=== PATIENT | male | born 1940 | race Caucasian/White ===

== ENCOUNTER 2022-05-15 13:56 | Emergency (ER) | payer OTHER ==
[~2022-05-15] VITALS: Ht 177.8 cm; Wt 106.1 kg
[2022-05-15 13:58] VITALS: BP_SYST 129
--- NOTE | 2022-05-15 14:01 | NUR ---
Patient triaged and placed on ambulance gurney. VSS and patient appears in no acute distress at this time. Accompanied by EMT's, awaiting available bed, and MD notified of need for MSE.
[2022-05-15] MEDS ORDERED: MORPHINE 4 MG INJ. 4 MG/ML VIAL IVP ONE ×2 (15:15→19:00)
[2022-05-15] MEDS ORDERED: ONDANSETRON HCL 4 MG/2 ML VIAL IVP ONE (15:15)
--- NOTE | 2022-05-15 15:27 | NUR ---
Placed in room 3 . Placed on school bus monitor, blood pressure machine and pulse oximeter. To gown for exam. Side rails up. Report given to GREY VASQUEZ.
[2022-05-15 15:28] LABS: BASOPHILS # (AUTO) 0.1 K/uL (0.0-0.2); BASOPHILS % (AUTO) 0.7 % (0.0-2.0); EOSINOPHILS # (AUTO) 0.1 K/uL (0.0-0.4); EOSINOPHILS % (AUTO) 0.6 % (0.0-4.0); HEMATOCRIT 40.7 % (36-54); LYMPHOCYTES # (AUTO) 1.1 K/uL (1.0-5.5); LYMPHOCYTES % (AUTO) 8.7 % (20.5-51.5); MEAN CORPUSCULAR VOLUME 91 fL (79.0-98.0); MONOCYTES # (AUTO) 0.6 K/uL (0.0-1.0); MONOCYTES % (AUTO) 4.9 % (1.7-9.3); NEUTROPHILS # (AUTO) 10.5 K/uL (1.8-7.7); NEUTROPHILS % (AUTO) 85.1 % (40.0-70.0); PLATELET COUNT (AUTO) 242 K/uL (130-430); RED BLOOD CELL COUNT(AUTO) 4.45 MIL/uL (4.2-6.2); WHITE BLOOD COUNT (AUTO) 12.3 K/uL (4.8-10.8)
[2022-05-15 15:43] LABS: ANION GAP 9 (5-15); CALCIUM 9.7 mg/dL (8.4-11.0); CHLORIDE 99 mmol/L (98-107); CREATININE 0.78 mg/dL (0.55-1.30); GLUCOSE 112 mg/dL (70-99); POTASSIUM 3.5 mmol/L (3.5-5.1); UREA NITROGEN, BLOOD 11 mg/dL (8-21)
[2022-05-15 15:45] LABS: INR 2.9 (0.80-1.20); PROTHROMBIN TIME 27.9 SECS (9.5-12.5)
[2022-05-15 15:49] LABS: ALANINE AMINOTRANSFERASE 33 U/L (12-78); ALBUMIN 3.6 g/dL (3.4-4.8); ASPARTATE AMINOTRANSFERASE 43 U/L (10-37); TOTAL BILIRUBIN 1.5 mg/dL (0.0-1.0)
--- NOTE | 2022-05-15 15:57 | NUR ---
PATIENT BIBA FROM HOME AAOX4 C/O HEAD INJURY AND RIGHT ANKLE PAIN, AWAITING FOR X-RAY AND CT SCAN FOR DISPOSITION.
--- NOTE | 2022-05-15 17:45 | NUR ---
PATIENT BACK IN BED FROM CT , AWAITING FOR RESULT FOR DISPOSITION.
--- NOTE | 2022-05-15 18:44 | NUR ---
SPLINT APPLIED TO PATIENT RIGHT LEG PER EDP, AWAITING FOR FAMILY TO SIEVE MAKER PATIENT.
[2022-05-15] MEDS ORDERED: KETOROLAC TROMETHAMINE 30 MG VIAL IVP ONE (19:00)
[2022-05-15] MEDS ORDERED: IBUP-1970 PO (19:01)
--- NOTE | 2022-05-15 19:06 | NUR ---
ALL RESULT BACK PATIENT D/C BY EDP AWAITING FOR CONSTRUCTION CARPENTER.
--- NOTE | 2022-05-15 19:25 | NUR ---
Received report from SALENA Salazar.
[2022-05-15 19:55] VITALS: BP_SYST 135
--- NOTE | 2022-05-15 19:55 | NUR ---
Patient given written and verbal discharge instructions and verbalizes understanding. ER MD discussed with patient the results and treatment provided. Patient in stable condition. ID arm band removed. IV catheter removed intact and dressing applied, no active bleeding. RX ibuprofen po given. Patient educated on pain management and to follow up with PMD and ortho MD. Pain Scale 2/10, tolerable. Opportunity for questions provided and answered. Medication side effect fact sheet provided.
== END 2022-05-15 19:55 | disposition home or self-care (01) ==
LOC: SED 13:56
DX: S92.012A Displaced fracture of body of left calcaneus, initial encounter for closed fracture (principal); S00.83XA Contusion of other part of head, initial encounter; I10 Essential (primary) hypertension; Z79.01 Long term (current) use of anticoagulants; Z79.899 Other long term (current) drug therapy; W11.XXXA Fall on and from ladder, initial encounter; Y93.89 Activity, other specified; Y92.89 Other specified places as the place of occurrence of the external cause; Y99.8 Other external cause status
CPT/HCPCS: 99285; 96374; 29515; 70450; 96375; 80053; 85025; 85610; 85730; 36415; 72100; 72170; 73610; 76376; 96376; J1885; J2405; J2270

== ENCOUNTER 2022-10-19 16:13 | Inpatient (IN) | payer OTHER ==
[~2022-10-19] VITALS: Ht 175.3 cm; Wt 73.0 kg
[~2022-10-19 16:13] MED LIST: DOCU-144 PO; FAMO20TA8 PO; METO-540 PO; PRAM0.253 PO; ROPI0.255 PO; SIME80TA15 PO; SUCR1TAB31 PO; TAMS0.4C96 PO
[2022-10-19 16:38] VITALS: BP_SYST 73
[2022-10-19] MEDS ORDERED: NALOXONE HCL 2 MG/2 ML SYR (NARCAN) IVP ONE (16:45)
[2022-10-19] MEDS ORDERED: NALOXONE HCL 2 MG/2 ML SYR ONE (17:05)
[2022-10-19 17:38] LABS: BASOPHILS % (AUTO) 0.1 % (0.0-2.0); HEMATOCRIT 30.4 % (36-54); HEMOGLOBIN 9.4 g/dL (14.0-18.0); LYMPHOCYTES # (AUTO) 0.6 K/uL (1.0-5.5); LYMPHOCYTES % (AUTO) 2.5 % (20.5-51.5); MEAN CORPUSCULAR HEMOGLOBIN 25 pg (27-31); MEAN CORPUSCULAR HGB CONC 31 % (32-36); MEAN CORPUSCULAR VOLUME 82 fL (79.0-98.0); MONOCYTES # (AUTO) 1.3 K/uL (0.0-1.0); MONOCYTES % (AUTO) 5.9 % (1.7-9.3); NEUTROPHILS % (AUTO) 91.5 % (40.0-70.0); PLATELET COUNT (AUTO) 480 K/uL (130-430); RED BLOOD CELL COUNT(AUTO) 3.71 MIL/uL (4.2-6.2); RED CELL DISTRIBUTION WIDTH 18.1 % (9.0-15.0); WHITE BLOOD COUNT (AUTO) 22.9 K/uL (4.8-10.8)
[2022-10-19] MEDS ORDERED: NOREPINEPHRINE BITARTRATE 4 MG in NS 246 ML IV ONE (18:00)
[2022-10-19 18:06] LABS: ALANINE AMINOTRANSFERASE 8 U/L (12-78); ALBUMIN 1.4 g/dL (3.4-4.8); ANION GAP 6 (5-15); ASPARTATE AMINOTRANSFERASE 38 U/L (10-37); CALCIUM 7.8 mg/dL (8.4-11.0); CHLORIDE 96 mmol/L (98-107); GLUCOSE 153 mg/dL (70-99); TOTAL BILIRUBIN 0.8 mg/dL (0.0-1.0); UREA NITROGEN, BLOOD 13 mg/dL (8-21)
[2022-10-19 18:08] LABS: ALCOHOL, BLOOD < 3 mg/dL (<10)
[2022-10-19 18:12] LABS: ACETAMINOPHEN 132 ug/mL (1-30)
[2022-10-19] MEDS ORDERED: KCL 40 mEq in D5W 1000 mL 1,000 ML IV ONE (18:15)
[2022-10-19] MEDS ORDERED: VANCOMYCIN HCL 1,000 MG in NS 250 ML IV ONE (18:15)
[2022-10-19] MEDS ORDERED: PIPERACILLIN/TAZO 3.375 GM in NS 50 ML IV ONE (18:15)
[2022-10-19] MEDS ORDERED: PIPERACILLIN/TAZOBACTAM 3.375 GM/VIAL (ZOSYN) IV ONE (18:29)
[2022-10-19 18:32] LABS: INR 4.3 (0.80-1.20); PROTHROMBIN TIME 40.5 SECS (9.5-12.5)
[2022-10-19] MEDS ORDERED: KCL 20 mEq in 100 mL (PREMIX) 0 ML IV ONE (18:47)
[2022-10-19] MEDS ORDERED: VANCOMYCIN HCL 1000 MG/VIAL IV ONE (18:50)
[2022-10-19 20:48] LABS: BILIRUBIN,URINE NEGATIVE (NEGATIVE); BLOOD, URINE 3+ (NEGATIVE); CLARITY/URINE TURBID (CLEAR); COLOR,URINE YELLOW (YELLOW); GLUCOSE,URINE NEGATIVE (NEGATIVE); KETONES,URINE 3+ (NEGATIVE); LEUKOCYTE ESTERASE ,URINE 3+ (NEGATIVE); NITRITE, URINE NEGATIVE (NEGATIVE); PROTEIN URINE 3+ (NEGATIVE); UROBILINOGEN,URINE 0.2 (0.2-1.0)
[2022-10-19 20:49] LABS: BACTERIA,URINE MANY /HPF (None Seen); RBC,URINE 0-3 /HPF (0-3); WBC,URINE >100 /HPF (0-3)
[2022-10-19 20:50] LABS: MUCUS,URINE None Seen /LPF (None Seen)
[2022-10-19 20:55] LABS: BARBITURATE, URINE NEGATIVE (NEG <=200); BENZODIAZEPINE, URINE POSITIVE (NEG <=150); CANNABINOID, URINE NEGATIVE (NEG <=50); COCAINE, URINE NEGATIVE (NEG <=150); METHAMPHETAMINES SCREEN,URINE NEGATIVE (NEG <=500); OPIATE, URINE POSITIVE (NEG <=100); PHENCYCLIDINE SCREEN,URINE NEGATIVE (NEG <=25); UR TRICYCLIC ANTIDEPRESSANTS NEGATIVE (NEG <=300); URINE AMPHETAMINE NEGATIVE (NEG <=500); URINE METHADONE NEGATIVE (NEG <=200); URINE OXYCODONE SCREEN NEGATIVE (NEG <=100); URINE PROPOXYPHENE SCREEN NEGATIVE (NEG <=300)
[2022-10-19] MEDS: PRAMIPEXOLE DI-HCL 1 MG TABLET PO SCH (21:00)
[2022-10-19] MEDS: roPINIRole HCL 0.25 MG ( REQUIP )TABLET PO SCH (21:00)
[2022-10-19 23:45] VITALS: BP_SYST 140
[2022-10-19 23:47] VITALS: BP_SYST 99
[2022-10-20] VITALS (27 sets, daily range): BP systolic 87–129
[2022-10-20] MEDS ORDERED: NOREPINEPHRINE 4 MG/4 ML VIAL IV ONE ×2 (02:44→13:17)
[2022-10-20] MEDS ORDERED: NOREPINEPHRINE BITARTRATE 4 MG in NS 246 ML IV PRN ×2 (03:00→17:30)
[2022-10-20 06:10] LABS: BASOPHILS % (AUTO) 0.2 % (0.0-2.0); HEMATOCRIT 33.3 % (36-54); HEMOGLOBIN 10.4 g/dL (14.0-18.0); LYMPHOCYTES # (AUTO) 0.9 K/uL (1.0-5.5); LYMPHOCYTES % (AUTO) 4.1 % (20.5-51.5); MEAN CORPUSCULAR HEMOGLOBIN 26 pg (27-31); MEAN CORPUSCULAR HGB CONC 31 % (32-36); MEAN CORPUSCULAR VOLUME 83 fL (79.0-98.0); MONOCYTES # (AUTO) 0.6 K/uL (0.0-1.0); MONOCYTES % (AUTO) 2.8 % (1.7-9.3); NEUTROPHILS # (AUTO) 20.2 K/uL (1.8-7.7); NEUTROPHILS % (AUTO) 92.9 % (40.0-70.0); PLATELET COUNT (AUTO) 295 K/uL (130-430); RED CELL DISTRIBUTION WIDTH 17.9 % (9.0-15.0); WHITE BLOOD COUNT (AUTO) 21.7 K/uL (4.8-10.8)
[2022-10-20 06:35] LABS: ANION GAP 3 (5-15); CALCIUM 7.7 mg/dL (8.4-11.0); CHLORIDE 95 mmol/L (98-107); CREATININE 0.85 mg/dL (0.55-1.30); GLUCOSE 234 mg/dL (70-99); UREA NITROGEN, BLOOD 19 mg/dL (8-21)
[2022-10-20 06:39] LABS: ALANINE AMINOTRANSFERASE 81 U/L (12-78); ALBUMIN 1.5 g/dL (3.4-4.8); ASPARTATE AMINOTRANSFERASE 422 U/L (10-37); TOTAL BILIRUBIN 0.9 mg/dL (0.0-1.0)
[2022-10-20] MEDS: SUCRALFATE 1 GM TABLET PO SCH ×2 (07:02→16:36)
[2022-10-20] MEDS ORDERED: KCL 40 mEq in 100 mL (PREMIX) 100 ML IV ONE (08:00)
[2022-10-20] MEDS ORDERED: DEXTROSE 50% JECT 50 ML DISP.SYRIN IVP ONE (08:00)
[2022-10-20] MEDS: TAMSULOSIN HCL 0.4 MG CAP PO SCH ×2 (09:55→20:20)
[2022-10-20] MEDS: FAMOTIDINE 20 MG TABLET PO SCH ×2 (09:55→20:22)
[2022-10-20] MEDS: DOCUSATE SODIUM 100 MG CAPSULE PO SCH ×2 (09:55→20:20)
[2022-10-20] MEDS: SIMETHICONE 80 MG TAB.CHEW PO SCH ×3 (09:55→20:22)
[2022-10-20] MEDS ORDERED: ACETYLCYSTEINE IV ONE ×3 (10:00)
[2022-10-20] MEDS ORDERED: D5W IV ONE ×3 (10:00)
[2022-10-20 12:09] LABS: ALANINE AMINOTRANSFERASE 133 U/L (12-78); ALBUMIN 1.3 g/dL (3.4-4.8); ANION GAP 13 (5-15); ASPARTATE AMINOTRANSFERASE 623 U/L (10-37); CALCIUM 7.6 mg/dL (8.4-11.0); CHLORIDE 93 mmol/L (98-107); CREATININE 0.82 mg/dL (0.55-1.30); GLUCOSE 235 mg/dL (70-99); TOTAL BILIRUBIN 0.9 mg/dL (0.0-1.0); UREA NITROGEN, BLOOD 20 mg/dL (8-21)
[2022-10-20] MEDS: PIPERACILLIN/TAZO 4.5GM/DEX-IS 100 ML IV SCH ×2 (14:37→21:16)
[2022-10-20 18:28] LABS: ALANINE AMINOTRANSFERASE 353 U/L (12-78); ALBUMIN 1.5 g/dL (3.4-4.8); ANION GAP 8 (5-15); ASPARTATE AMINOTRANSFERASE 1715 U/L (10-37); CALCIUM 8.1 mg/dL (8.4-11.0); CHLORIDE 94 mmol/L (98-107); CREATININE 1.03 mg/dL (0.55-1.30); GLUCOSE 195 mg/dL (70-99); TOTAL BILIRUBIN 1.2 mg/dL (0.0-1.0); UREA NITROGEN, BLOOD 23 mg/dL (8-21)
[2022-10-20 18:51] LABS: INR > 9.0 (0.80-1.20)
[2022-10-20] MEDS ORDERED: NACL 0.9% 1,000 ML IV ONE (19:00)
[2022-10-20] MEDS ORDERED: LACTULOSE 20 GM/30 ML UDC PO ONE (19:15)
[2022-10-20] MEDS ORDERED: RIFAXIMIN 550 MG TABLET PO ONE (19:15)
[2022-10-20] MEDS ORDERED: AMIODARONE HCL 150 MG/3ML VIAL ONE (19:29)
[2022-10-20] MEDS ORDERED: AMIODARONE HCL 150 MG in D5W 100 ML IV ONE (19:30)
[2022-10-20] MEDS ORDERED: K PHOS 30 MM in NS 250 ML IV ONE (19:30)
[2022-10-20] MEDS: AMIODARONE HCL 450 MG in D5W 241 ML IV SCH (20:09)
[2022-10-20] MEDS: PRAMIPEXOLE DI-HCL 1 MG TABLET PO SCH (21:00)
[2022-10-20] MEDS: roPINIRole HCL 0.25 MG ( REQUIP )TABLET PO SCH (21:00)
[2022-10-20] MEDS: LACTULOSE 20 GM/30 ML UDC PO SCH (21:15)
[2022-10-20] MEDS: NOREPINEPHRINE BITARTRATE 16 MG in NS 234 ML IV PRN (22:57)
[2022-10-20] MEDS ORDERED: PHYTONADIONE 10 MG in NS 50 ML IV ONE (23:15)
[2022-10-20] MEDS ORDERED: PHYTONADIONE 10 MG/ML AMP ONE (23:47)
[2022-10-21] VITALS (24 sets, daily range): BP systolic 87–138
[2022-10-21 01:35] LABS: INR > 9.0 (0.80-1.20)
[2022-10-21 01:39] LABS: ACETAMINOPHEN 3 ug/mL (1-30); ALANINE AMINOTRANSFERASE 578 U/L (12-78); ALBUMIN 1.4 g/dL (3.4-4.8); ANION GAP 13 (5-15); ASPARTATE AMINOTRANSFERASE 2345 U/L (10-37); CALCIUM 7.4 mg/dL (8.4-11.0); CHLORIDE 94 mmol/L (98-107); CREATININE 1.15 mg/dL (0.55-1.30); GLUCOSE 180 mg/dL (70-99); PHOSPHORUS 2.5 mg/dL (2.7-4.5); TOTAL BILIRUBIN 1.2 mg/dL (0.0-1.0); UREA NITROGEN, BLOOD 23 mg/dL (8-21)
[2022-10-21] MEDS ORDERED: KCL 40 mEq in 100 mL (PREMIX) 100 ML IV ONE ×2 (02:00→06:00)
[2022-10-21] MEDS: AMIODARONE HCL 450 MG in D5W 241 ML IV SCH (04:29)
[2022-10-21] MEDS: SUCRALFATE 1 GM TABLET PO SCH ×2 (06:06→16:29)
[2022-10-21] MEDS: PIPERACILLIN/TAZO 4.5GM/DEX-IS 100 ML IV SCH ×3 (06:06→21:42)
[2022-10-21 06:51] LABS: BASOPHILS # (AUTO) 0.1 K/uL (0.0-0.2); BASOPHILS % (AUTO) 0.2 % (0.0-2.0); EOSINOPHILS % (AUTO) 0.1 % (0.0-4.0); HEMATOCRIT 35.8 % (36-54); HEMOGLOBIN 11.1 g/dL (14.0-18.0); LYMPHOCYTES # (AUTO) 1.6 K/uL (1.0-5.5); LYMPHOCYTES % (AUTO) 5.8 % (20.5-51.5); MEAN CORPUSCULAR HEMOGLOBIN 26 pg (27-31); MEAN CORPUSCULAR HGB CONC 31 % (32-36); MEAN CORPUSCULAR VOLUME 83 fL (79.0-98.0); MONOCYTES % (AUTO) 3.6 % (1.7-9.3); NEUTROPHILS # (AUTO) 25.3 K/uL (1.8-7.7); NEUTROPHILS % (AUTO) 90.3 % (40.0-70.0); PLATELET COUNT (AUTO) 206 K/uL (130-430)
[2022-10-21] MEDS ORDERED: D5W IV ONE (07:00)
[2022-10-21] MEDS ORDERED: ACETYLCYSTEINE IV ONE (07:00)
[2022-10-21 07:13] LABS: ACETAMINOPHEN 2 ug/mL (1-30); ALANINE AMINOTRANSFERASE 662 U/L (12-78); ALBUMIN 1.4 g/dL (3.4-4.8); ANION GAP 11 (5-15); CALCIUM 7.7 mg/dL (8.4-11.0); CHLORIDE 93 mmol/L (98-107); CHOLESTEROL 55 mg/dL (<200); CREATININE 1.11 mg/dL (0.55-1.30); GLUCOSE 162 mg/dL (70-99); HDL CHOLESTEROL 32 mg/dL (>45); PHOSPHORUS 2.5 mg/dL (2.7-4.5); THYROID STIMULATING HORMONE 1.22 uIu/mL (0.34-4.82); TOTAL BILIRUBIN 1.3 mg/dL (0.0-1.0); TRIGLYCERIDES 66 mg/dL (30-150); UREA NITROGEN, BLOOD 24 mg/dL (8-21)
[2022-10-21 08:03] LABS: INR 5.8 (0.80-1.20); PROTHROMBIN TIME 54.2 SECS (9.5-12.5)
[2022-10-21] MEDS: LACTULOSE 20 GM/30 ML UDC PO SCH ×2 (09:23→21:39)
[2022-10-21] MEDS: TAMSULOSIN HCL 0.4 MG CAP PO SCH ×2 (09:23→21:41)
[2022-10-21] MEDS: FAMOTIDINE 20 MG TABLET PO SCH ×2 (09:24→21:41)
[2022-10-21] MEDS: RIFAXIMIN 550 MG TABLET PO SCH ×2 (09:24→21:42)
[2022-10-21] MEDS: SIMETHICONE 80 MG TAB.CHEW PO SCH ×3 (09:24→21:41)
[2022-10-21] MEDS: DOCUSATE SODIUM 100 MG CAPSULE PO SCH ×2 (09:24→21:39)
[2022-10-21] MEDS ORDERED: PHYTONADIONE Non-Formulary 5 MG TABLET PO ONE (10:00)
[2022-10-21 12:00] LABS: ASPARTATE AMINOTRANSFERASE 3090 U/L (10-37)
[2022-10-21] MEDS: NOREPINEPHRINE BITARTRATE 16 MG in NS 234 ML IV PRN (12:05)
[2022-10-21 12:24] LABS: INR 3.5 (0.80-1.20)
[2022-10-21 12:29] LABS: BASOPHILS % (AUTO) 0.1 % (0.0-2.0); EOSINOPHILS % (AUTO) 0.1 % (0.0-4.0); HEMATOCRIT 35.9 % (36-54); HEMOGLOBIN 11.1 g/dL (14.0-18.0); LYMPHOCYTES # (AUTO) 1.7 K/uL (1.0-5.5); LYMPHOCYTES % (AUTO) 6.6 % (20.5-51.5); MEAN CORPUSCULAR HEMOGLOBIN 26 pg (27-31); MEAN CORPUSCULAR HGB CONC 31 % (32-36); MEAN CORPUSCULAR VOLUME 83 fL (79.0-98.0); MONOCYTES # (AUTO) 1.1 K/uL (0.0-1.0); MONOCYTES % (AUTO) 4.4 % (1.7-9.3); NEUTROPHILS # (AUTO) 22.8 K/uL (1.8-7.7); NEUTROPHILS % (AUTO) 88.8 % (40.0-70.0); PLATELET COUNT (AUTO) 199 K/uL (130-430); RED BLOOD CELL COUNT(AUTO) 4.35 MIL/uL (4.2-6.2); RED CELL DISTRIBUTION WIDTH 18.5 % (9.0-15.0); WHITE BLOOD COUNT (AUTO) 25.6 K/uL (4.8-10.8)
[2022-10-21 12:37] LABS: ACETAMINOPHEN 1 ug/mL (1-30); ALANINE AMINOTRANSFERASE 705 U/L (12-78); ALBUMIN 1.4 g/dL (3.4-4.8); ANION GAP 13 (5-15); BILIRUBIN,DIRECT 0.8 mg/dL (0.0-0.3); CHLORIDE 92 mmol/L (98-107); GLUCOSE 158 mg/dL (70-99); PHOSPHORUS 2.2 mg/dL (2.7-4.5); TOTAL BILIRUBIN 1.4 mg/dL (0.0-1.0); UREA NITROGEN, BLOOD 26 mg/dL (8-21)
[2022-10-21] MEDS ORDERED: POTASSIUM CHLORIDE 20 MEQ/PKT PACKET PO ONE (12:45)
[2022-10-21 12:58] LABS: ASPARTATE AMINOTRANSFERASE 2997 U/L (10-37)
[2022-10-21] MEDS ORDERED: PHYTONADIONE (Vitamin K) Oral Solution PO ONE (13:00)
[2022-10-21 13:01] LABS: PROTHROMBIN TIME 33.3 SECS (9.5-12.5)
[2022-10-21] MEDS: VANCOMYCIN HCL 750 MG in NS 250 ML IV SCH (14:54)
[2022-10-21] MEDS: MUPIROCIN 2% TOPICAL OINTMENT 22 GM NS SCH (21:40)
[2022-10-21] MEDS: AMIODARONE HCL 200 MG TABLET PO SCH (21:40)
[2022-10-21] MEDS: roPINIRole HCL 0.25 MG ( REQUIP )TABLET PO SCH (21:41)
[2022-10-21] MEDS: PRAMIPEXOLE DI-HCL 1 MG TABLET PO SCH (21:41)
[2022-10-22] VITALS (24 sets, daily range): BP systolic 81–118
[2022-10-22] MEDS: NOREPINEPHRINE BITARTRATE 16 MG in NS 234 ML IV PRN ×2 (01:35→15:36)
[2022-10-22 02:32] LABS: INR 1.9 (0.80-1.20); PROTHROMBIN TIME 18.7 SECS (9.5-12.5)
[2022-10-22 02:34] LABS: ALANINE AMINOTRANSFERASE 555 U/L (12-78); ASPARTATE AMINOTRANSFERASE 1264 U/L (10-37)
[2022-10-22] MEDS ORDERED: NOREPINEPHRINE 4 MG/4 ML VIAL IV ONE (02:34)
[2022-10-22] MEDS: VANCOMYCIN HCL 750 MG in NS 250 ML IV SCH ×2 (03:14→14:13)
[2022-10-22 06:33] LABS: BASOPHILS % (AUTO) 0.2 % (0.0-2.0); EOSINOPHILS % (AUTO) 0.2 % (0.0-4.0); HEMATOCRIT 32.4 % (36-54); HEMOGLOBIN 10.5 g/dL (14.0-18.0); LYMPHOCYTES # (AUTO) 1.8 K/uL (1.0-5.5); LYMPHOCYTES % (AUTO) 8.6 % (20.5-51.5); MEAN CORPUSCULAR HEMOGLOBIN 26 pg (27-31); MEAN CORPUSCULAR HGB CONC 32 % (32-36); MEAN CORPUSCULAR VOLUME 81 fL (79.0-98.0); MONOCYTES # (AUTO) 1.4 K/uL (0.0-1.0); MONOCYTES % (AUTO) 6.6 % (1.7-9.3); NEUTROPHILS # (AUTO) 17.4 K/uL (1.8-7.7); NEUTROPHILS % (AUTO) 84.4 % (40.0-70.0); PLATELET COUNT (AUTO) 196 K/uL (130-430); RED BLOOD CELL COUNT(AUTO) 3.99 MIL/uL (4.2-6.2); WHITE BLOOD COUNT (AUTO) 20.6 K/uL (4.8-10.8)
[2022-10-22 07:10] LABS: ALANINE AMINOTRANSFERASE 578 U/L (12-78); ALBUMIN 1.4 g/dL (3.4-4.8); ANION GAP 9 (5-15); BILIRUBIN,DIRECT 0.7 mg/dL (0.0-0.3); CALCIUM 7.7 mg/dL (8.4-11.0); CHLORIDE 92 mmol/L (98-107); CREATININE 1.04 mg/dL (0.55-1.30); GLUCOSE 151 mg/dL (70-99); TOTAL BILIRUBIN 1.3 mg/dL (0.0-1.0); UREA NITROGEN, BLOOD 22 mg/dL (8-21)
[2022-10-22] MEDS: PIPERACILLIN/TAZO 4.5GM/DEX-IS 100 ML IV SCH ×3 (07:40→23:54)
[2022-10-22] MEDS: SUCRALFATE 1 GM TABLET PO SCH ×2 (07:41→16:56)
[2022-10-22 08:06] LABS: EBV AB VCA, IgM <36.0 U/mL (0.0-35.9); HEPATITIS B SURFACE AG Negative (Negative); HEPATITIS C VIRUS AB Non Reactive (Non Reactive)
[2022-10-22] MEDS ORDERED: D5NS 1,000 ML IV SCH (08:30)
[2022-10-22] MEDS: DOCUSATE SODIUM 100 MG CAPSULE PO SCH ×2 (09:00→23:49)
[2022-10-22 09:07] LABS: ASPARTATE AMINOTRANSFERASE 1289 U/L (10-37)
[2022-10-22] MEDS: SIMETHICONE 80 MG TAB.CHEW PO SCH ×3 (09:21→23:52)
[2022-10-22] MEDS: TAMSULOSIN HCL 0.4 MG CAP PO SCH ×2 (09:22→23:51)
[2022-10-22] MEDS: FAMOTIDINE 20 MG TABLET PO SCH ×2 (09:23→23:53)
[2022-10-22] MEDS: AMIODARONE HCL 200 MG TABLET PO SCH ×2 (09:23→23:49)
[2022-10-22] MEDS: LACTULOSE 20 GM/30 ML UDC PO SCH ×2 (09:23→23:50)
[2022-10-22] MEDS: RIFAXIMIN 550 MG TABLET PO SCH (09:24)
[2022-10-22] MEDS: MUPIROCIN 2% TOPICAL OINTMENT 22 GM NS SCH ×2 (09:24→23:47)
[2022-10-22] MEDS: KCL 20 mEq in D5NS 1000 mL 1,000 ML IV SCH (12:45)
[2022-10-22] MEDS ORDERED: POTASSIUM CHLORIDE 20 MEQ/PKT PACKET PO ONE (12:45)
[2022-10-22] MEDS ORDERED: D5W IV ONE ×2 (22:45→23:15)
[2022-10-22] MEDS ORDERED: ACETYLCYSTEINE IV ONE ×2 (22:45→23:15)
[2022-10-22] MEDS ORDERED: ACETYLCYSTEINE IV 6000 MG/30 ML VIAL IV ONE (23:19)
[2022-10-22] MEDS: PRAMIPEXOLE DI-HCL 1 MG TABLET PO SCH (23:52)
[2022-10-22] MEDS: roPINIRole HCL 0.25 MG ( REQUIP )TABLET PO SCH (23:53)
[2022-10-23] VITALS (23 sets, daily range): BP systolic 87–115
[2022-10-23] MEDS: KCL 20 mEq in D5NS 1000 mL 1,000 ML IV SCH ×2 (04:01→16:26)
[2022-10-23] MEDS: VANCOMYCIN HCL 750 MG in NS 250 ML IV SCH ×2 (04:02→16:26)
[2022-10-23] MEDS: PIPERACILLIN/TAZO 4.5GM/DEX-IS 100 ML IV SCH ×2 (06:05→13:10)
[2022-10-23] MEDS: SUCRALFATE 1 GM TABLET PO SCH ×2 (06:08→16:27)
[2022-10-23 07:07] LABS: BASOPHILS % (AUTO) 0.2 % (0.0-2.0); EOSINOPHILS # (AUTO) 0.1 K/uL (0.0-0.4); EOSINOPHILS % (AUTO) 0.4 % (0.0-4.0); HEMATOCRIT 31.2 % (36-54); LYMPHOCYTES # (AUTO) 1.4 K/uL (1.0-5.5); LYMPHOCYTES % (AUTO) 9.9 % (20.5-51.5); MEAN CORPUSCULAR HEMOGLOBIN 26 pg (27-31); MEAN CORPUSCULAR HGB CONC 32 % (32-36); MEAN CORPUSCULAR VOLUME 81 fL (79.0-98.0); MONOCYTES # (AUTO) 1.4 K/uL (0.0-1.0); MONOCYTES % (AUTO) 9.5 % (1.7-9.3); NEUTROPHILS # (AUTO) 11.6 K/uL (1.8-7.7); PLATELET COUNT (AUTO) 174 K/uL (130-430); RED BLOOD CELL COUNT(AUTO) 3.84 MIL/uL (4.2-6.2); WHITE BLOOD COUNT (AUTO) 14.5 K/uL (4.8-10.8)
[2022-10-23 07:45] LABS: INR 1.8 (0.80-1.20); PROTHROMBIN TIME 17.3 SECS (9.5-12.5)
[2022-10-23 07:50] LABS: ALANINE AMINOTRANSFERASE 342 U/L (12-78); ALBUMIN 1.3 g/dL (3.4-4.8); ANION GAP 5 (5-15); ASPARTATE AMINOTRANSFERASE 356 U/L (10-37); CALCIUM 7.9 mg/dL (8.4-11.0); CHLORIDE 97 mmol/L (98-107); CREATININE 0.71 mg/dL (0.55-1.30); GLUCOSE 134 mg/dL (70-99); LIPASE 90 U/L (73-393); TOTAL BILIRUBIN 1.1 mg/dL (0.0-1.0); UREA NITROGEN, BLOOD 13 mg/dL (8-21)
[2022-10-23] MEDS: FAMOTIDINE 20 MG TABLET PO SCH ×2 (08:02→20:53)
[2022-10-23] MEDS: LACTULOSE 20 GM/30 ML UDC PO SCH ×2 (08:02→20:50)
[2022-10-23] MEDS: DOCUSATE SODIUM 100 MG CAPSULE PO SCH ×2 (08:02→20:50)
[2022-10-23] MEDS: SIMETHICONE 80 MG TAB.CHEW PO SCH ×3 (08:02→20:53)
[2022-10-23] MEDS: TAMSULOSIN HCL 0.4 MG CAP PO SCH ×2 (08:02→20:52)
[2022-10-23] MEDS: MUPIROCIN 2% TOPICAL OINTMENT 22 GM NS SCH ×2 (08:03→20:49)
[2022-10-23 08:31] LABS: ALBUMIN 1.3 g/dL (3.4-4.8); BILIRUBIN,DIRECT 0.5 mg/dL (0.0-0.3); TOTAL BILIRUBIN 1.1 mg/dL (0.0-1.0)
[2022-10-23 08:44] LABS: INR 1.7 (0.80-1.20); PROTHROMBIN TIME 16.5 SECS (9.5-12.5)
[2022-10-23] MEDS ORDERED: POTASSIUM CHLORIDE 20 MEQ/PKT PACKET PO ONE (10:30)
[2022-10-23] MEDS: roPINIRole HCL 0.25 MG ( REQUIP )TABLET PO SCH (20:54)
[2022-10-23] MEDS: PRAMIPEXOLE DI-HCL 1 MG TABLET PO SCH (21:00)
[2022-10-24] VITALS (25 sets, daily range): BP systolic 101–136
[2022-10-24] MEDS: PIPERACILLIN/TAZO 4.5GM/DEX-IS 100 ML IV SCH ×2 (01:59→06:44)
[2022-10-24] MEDS: VANCOMYCIN HCL 750 MG in NS 250 ML IV SCH (02:00)
[2022-10-24] MEDS: KCL 20 mEq in D5NS 1000 mL 1,000 ML IV SCH ×2 (06:45→20:04)
[2022-10-24] MEDS: SUCRALFATE 1 GM TABLET PO SCH ×2 (06:46→17:00)
[2022-10-24 07:20] LABS: ALANINE AMINOTRANSFERASE 243 U/L (12-78); ALBUMIN 1.4 g/dL (3.4-4.8); ANION GAP 4 (5-15); CALCIUM 8.3 mg/dL (8.4-11.0); CHLORIDE 100 mmol/L (98-107); GLUCOSE 127 mg/dL (70-99); UREA NITROGEN, BLOOD 12 mg/dL (8-21)
[2022-10-24 08:03] LABS: BASOPHILS # (AUTO) 0.1 K/uL (0.0-0.2); BASOPHILS % (AUTO) 0.5 % (0.0-2.0); EOSINOPHILS # (AUTO) 0.2 K/uL (0.0-0.4); EOSINOPHILS % (AUTO) 1.5 % (0.0-4.0); HEMATOCRIT 30.7 % (36-54); HEMOGLOBIN 9.8 g/dL (14.0-18.0); LYMPHOCYTES # (AUTO) 1.5 K/uL (1.0-5.5); LYMPHOCYTES % (AUTO) 10.8 % (20.5-51.5); MEAN CORPUSCULAR HEMOGLOBIN 27 pg (27-31); MEAN CORPUSCULAR HGB CONC 32 % (32-36); MEAN CORPUSCULAR VOLUME 83 fL (79.0-98.0); MONOCYTES # (AUTO) 1.5 K/uL (0.0-1.0); MONOCYTES % (AUTO) 10.9 % (1.7-9.3); NEUTROPHILS # (AUTO) 10.5 K/uL (1.8-7.7); NEUTROPHILS % (AUTO) 76.3 % (40.0-70.0); PLATELET COUNT (AUTO) 207 K/uL (130-430); RED CELL DISTRIBUTION WIDTH 18.2 % (9.0-15.0)
[2022-10-24 08:10] LABS: ASPARTATE AMINOTRANSFERASE 140 U/L (10-37)
[2022-10-24 08:22] LABS: WHITE BLOOD COUNT (AUTO) 13.7 K/uL (4.8-10.8)
[2022-10-24] MEDS: SIMETHICONE 80 MG TAB.CHEW PO SCH ×3 (09:00→21:32)
[2022-10-24] MEDS: LACTULOSE 20 GM/30 ML UDC PO SCH ×2 (09:00→21:30)
[2022-10-24] MEDS: DOCUSATE SODIUM 100 MG CAPSULE PO SCH ×2 (09:48→21:29)
[2022-10-24] MEDS: TAMSULOSIN HCL 0.4 MG CAP PO SCH ×2 (09:49→21:31)
[2022-10-24] MEDS: FAMOTIDINE 20 MG TABLET PO SCH ×2 (09:50→21:32)
[2022-10-24] MEDS: MUPIROCIN 2% TOPICAL OINTMENT 22 GM NS SCH ×2 (09:52→21:29)
[2022-10-24 09:56] LABS: INR 1.6 (0.80-1.20); PROTHROMBIN TIME 16.2 SECS (9.5-12.5)
[2022-10-24] MEDS: NAFCILLIN SODIUM 2 GM in NS 100 ML IV SCH ×3 (13:59→23:37)
[2022-10-24] MEDS: CIPROFLOXACIN LACT 200 MG/D5W 100 ML IV SCH (21:28)
[2022-10-24] MEDS: PRAMIPEXOLE DI-HCL 1 MG TABLET PO SCH (21:31)
[2022-10-24] MEDS: roPINIRole HCL 0.25 MG ( REQUIP )TABLET PO SCH (21:33)
[2022-10-24] MEDS: NOREPINEPHRINE BITARTRATE 16 MG in NS 234 ML IV PRN (22:39)
[2022-10-25] VITALS (23 sets, daily range): BP systolic 100–141
[2022-10-25] MEDS: SUCRALFATE 1 GM TABLET PO SCH ×2 (06:31→17:20)
[2022-10-25 06:46] LABS: INR 1.8 (0.80-1.20); PROTHROMBIN TIME 18.2 SECS (9.5-12.5)
[2022-10-25 06:56] LABS: ALANINE AMINOTRANSFERASE 156 U/L (12-78); ALBUMIN 1.4 g/dL (3.4-4.8); ANION GAP 3 (5-15); CALCIUM 8.3 mg/dL (8.4-11.0); CHLORIDE 104 mmol/L (98-107); CREATININE 0.61 mg/dL (0.55-1.30); GLUCOSE 136 mg/dL (70-99); TOTAL BILIRUBIN 1.5 mg/dL (0.0-1.0); UREA NITROGEN, BLOOD 12 mg/dL (8-21)
[2022-10-25] MEDS: NAFCILLIN SODIUM 2 GM in NS 100 ML IV SCH ×3 (07:03→17:20)
[2022-10-25 07:20] LABS: ASPARTATE AMINOTRANSFERASE 60 U/L (10-37)
[2022-10-25] MEDS: CIPROFLOXACIN LACT 200 MG/D5W 100 ML IV SCH ×2 (08:42→20:20)
[2022-10-25] MEDS: DOCUSATE SODIUM 100 MG CAPSULE PO SCH ×2 (08:43→20:20)
[2022-10-25] MEDS: TAMSULOSIN HCL 0.4 MG CAP PO SCH ×2 (08:43→20:20)
[2022-10-25] MEDS: FAMOTIDINE 20 MG TABLET PO SCH ×2 (08:43→20:20)
[2022-10-25] MEDS: SIMETHICONE 80 MG TAB.CHEW PO SCH ×3 (08:44→20:20)
[2022-10-25] MEDS ORDERED: FUROSEMIDE 20 MG/2 ML VIAL IVP ONE (09:00)
[2022-10-25] MEDS: MUPIROCIN 2% TOPICAL OINTMENT 22 GM NS SCH ×2 (09:00→20:20)
[2022-10-25] MEDS: LACTULOSE 20 GM/30 ML UDC PO SCH (09:00)
[2022-10-25] MEDS ORDERED: FUROSEMIDE 40 MG/4 ML VIAL IVP ONE (09:15)
[2022-10-25] MEDS: MORPHINE 2 MG/ML INJ. SYRINGE IVP PRN (09:39)
[2022-10-25] MEDS: KCL 20 mEq in D5NS 1000 mL 1,000 ML IV SCH ×2 (12:31→23:00)
[2022-10-25] MEDS: roPINIRole HCL 0.25 MG ( REQUIP )TABLET PO SCH (20:20)
[2022-10-25] MEDS: PRAMIPEXOLE DI-HCL 1 MG TABLET PO SCH (20:20)
[2022-10-26] VITALS (7 sets, daily range): BP systolic 117–141
[2022-10-26] MEDS: NAFCILLIN SODIUM 2 GM in NS 100 ML IV SCH ×5 (01:25→23:51)
[2022-10-26 05:42] LABS: BASOPHILS % (AUTO) 0.3 % (0.0-2.0); EOSINOPHILS # (AUTO) 0.1 K/uL (0.0-0.4); EOSINOPHILS % (AUTO) 0.5 % (0.0-4.0); HEMOGLOBIN 9.8 g/dL (14.0-18.0); LYMPHOCYTES # (AUTO) 1.1 K/uL (1.0-5.5); LYMPHOCYTES % (AUTO) 8.7 % (20.5-51.5); MEAN CORPUSCULAR HEMOGLOBIN 26 pg (27-31); MEAN CORPUSCULAR HGB CONC 32 % (32-36); MEAN CORPUSCULAR VOLUME 83 fL (79.0-98.0); MONOCYTES # (AUTO) 1.3 K/uL (0.0-1.0); MONOCYTES % (AUTO) 9.9 % (1.7-9.3); NEUTROPHILS # (AUTO) 10.3 K/uL (1.8-7.7); NEUTROPHILS % (AUTO) 80.6 % (40.0-70.0); PLATELET COUNT (AUTO) 244 K/uL (130-430); RED BLOOD CELL COUNT(AUTO) 3.72 MIL/uL (4.2-6.2); RED CELL DISTRIBUTION WIDTH 18.4 % (9.0-15.0); WHITE BLOOD COUNT (AUTO) 12.8 K/uL (4.8-10.8)
[2022-10-26 06:05] LABS: ANION GAP 8 (5-15); CALCIUM 8.3 mg/dL (8.4-11.0); CHLORIDE 104 mmol/L (98-107); CREATININE 0.76 mg/dL (0.55-1.30); GLUCOSE 161 mg/dL (70-99); UREA NITROGEN, BLOOD 12 mg/dL (8-21)
[2022-10-26] MEDS: SUCRALFATE 1 GM TABLET PO SCH ×2 (06:14→17:47)
[2022-10-26] MEDS: TAMSULOSIN HCL 0.4 MG CAP PO SCH ×2 (08:38→21:22)
[2022-10-26] MEDS: SIMETHICONE 80 MG TAB.CHEW PO SCH ×3 (08:38→21:22)
[2022-10-26] MEDS: DOCUSATE SODIUM 100 MG CAPSULE PO SCH ×2 (08:38→21:22)
[2022-10-26] MEDS: FAMOTIDINE 20 MG TABLET PO SCH ×2 (08:38→21:22)
[2022-10-26] MEDS: LACTULOSE 20 GM/30 ML UDC PO SCH (08:39)
[2022-10-26] MEDS: CIPROFLOXACIN LACT 200 MG/D5W 100 ML IV SCH ×2 (08:41→21:22)
[2022-10-26] MEDS: MUPIROCIN 2% TOPICAL OINTMENT 22 GM NS SCH (08:44)
[2022-10-26] MEDS: KCL 20 mEq in D5NS 1000 mL 1,000 ML IV SCH (13:25)
[2022-10-26] MEDS: PRAMIPEXOLE DI-HCL 1 MG TABLET PO SCH (21:22)
[2022-10-26] MEDS: roPINIRole HCL 0.25 MG ( REQUIP )TABLET PO SCH (21:22)
[2022-10-27] VITALS (13 sets, daily range): BP systolic 104–145
[2022-10-27] MEDS: KCL 20 mEq in D5NS 1000 mL 1,000 ML IV SCH (01:33)
[2022-10-27] MEDS: NAFCILLIN SODIUM 2 GM in NS 100 ML IV SCH ×3 (05:22→17:56)
[2022-10-27 06:31] LABS: ALANINE AMINOTRANSFERASE 96 U/L (12-78); ALBUMIN 1.7 g/dL (3.4-4.8); ANION GAP 6 (5-15); ASPARTATE AMINOTRANSFERASE 31 U/L (10-37); CALCIUM 8.6 mg/dL (8.4-11.0); CHLORIDE 107 mmol/L (98-107); CREATININE 0.68 mg/dL (0.55-1.30); GLUCOSE 153 mg/dL (70-99); TOTAL BILIRUBIN 1.2 mg/dL (0.0-1.0); UREA NITROGEN, BLOOD 15 mg/dL (8-21)
[2022-10-27 07:33] LABS: BASOPHILS % (AUTO) 0.2 % (0.0-2.0); EOSINOPHILS % (AUTO) 0.2 % (0.0-4.0); HEMOGLOBIN 10.1 g/dL (14.0-18.0); LYMPHOCYTES # (AUTO) 1.1 K/uL (1.0-5.5); LYMPHOCYTES % (AUTO) 7.8 % (20.5-51.5); MEAN CORPUSCULAR HEMOGLOBIN 27 pg (27-31); MEAN CORPUSCULAR HGB CONC 32 % (32-36); MEAN CORPUSCULAR VOLUME 84 fL (79.0-98.0); MONOCYTES # (AUTO) 1.3 K/uL (0.0-1.0); MONOCYTES % (AUTO) 9.1 % (1.7-9.3); NEUTROPHILS # (AUTO) 11.7 K/uL (1.8-7.7); NEUTROPHILS % (AUTO) 82.7 % (40.0-70.0); PLATELET COUNT (AUTO) 268 K/uL (130-430); RED BLOOD CELL COUNT(AUTO) 3.82 MIL/uL (4.2-6.2); RED CELL DISTRIBUTION WIDTH 18.7 % (9.0-15.0); WHITE BLOOD COUNT (AUTO) 14.2 K/uL (4.8-10.8)
[2022-10-27] MEDS: SUCRALFATE 1 GM TABLET PO SCH ×2 (07:56→17:56)
[2022-10-27] MEDS: MORPHINE 2 MG/ML INJ. SYRINGE IVP PRN (07:56)
[2022-10-27] MEDS: FAMOTIDINE 20 MG TABLET PO SCH ×2 (08:04→21:52)
[2022-10-27] MEDS: TAMSULOSIN HCL 0.4 MG CAP PO SCH ×2 (08:04→21:59)
[2022-10-27] MEDS: DOCUSATE SODIUM 100 MG CAPSULE PO SCH ×2 (08:04→21:58)
[2022-10-27] MEDS: SIMETHICONE 80 MG TAB.CHEW PO SCH ×3 (08:04→22:01)
[2022-10-27] MEDS: CIPROFLOXACIN LACT 200 MG/D5W 100 ML IV SCH ×2 (08:05→23:24)
[2022-10-27] MEDS: LACTULOSE 20 GM/30 ML UDC PO SCH ×2 (08:05→21:50)
[2022-10-27] MEDS ORDERED: metOLazone 2.5 MG TABLET PO ONE (08:15)
[2022-10-27] MEDS ORDERED: FUROSEMIDE 40 MG/4 ML VIAL IVP SCH (09:00)
[2022-10-27] MEDS: METOPROLOL SUCCINATE 25 MG TAB.SR.24H (TOPROL XL) PO SCH (09:44)
[2022-10-27] MEDS ORDERED: LACTULOSE 20 GM/30 ML UDC PO SCH (15:27)
[2022-10-27] MEDS: roPINIRole HCL 0.25 MG ( REQUIP )TABLET PO SCH (21:00)
[2022-10-27] MEDS: PRAMIPEXOLE DI-HCL 1 MG TABLET PO SCH (21:00)
[2022-10-27] MEDS: FUROSEMIDE 20 MG/2 ML VIAL IVP SCH (23:24)
[2022-10-28] MEDS: NAFCILLIN SODIUM 2 GM in NS 100 ML IV SCH ×4 (00:51→18:08)
[2022-10-28 07:58] VITALS: BP_SYST 152
[2022-10-28] MEDS ORDERED: LACTULOSE 20 GM/30 ML UDC PO SCH (09:00)
[2022-10-28] MEDS: CIPROFLOXACIN LACT 200 MG/D5W 100 ML IV SCH ×2 (09:07→21:39)
[2022-10-28] MEDS: TAMSULOSIN HCL 0.4 MG CAP PO SCH ×2 (09:07→21:38)
[2022-10-28] MEDS: METOPROLOL SUCCINATE 25 MG TAB.SR.24H (TOPROL XL) PO SCH (09:08)
[2022-10-28] MEDS: FAMOTIDINE 20 MG TABLET PO SCH ×2 (09:08→21:38)
[2022-10-28] MEDS: DOCUSATE SODIUM 100 MG CAPSULE PO SCH ×2 (09:08→21:38)
[2022-10-28] MEDS: SIMETHICONE 80 MG TAB.CHEW PO SCH ×3 (09:08→21:38)
[2022-10-28] MEDS: FUROSEMIDE 20 MG/2 ML VIAL IVP SCH ×2 (09:09→21:40)
[2022-10-28 09:25] LABS: INR 1.7 (0.80-1.20); PROTHROMBIN TIME 17.1 SECS (9.5-12.5)
[2022-10-28 11:22] VITALS: BP_SYST 119
[2022-10-28 15:00] VITALS: BP_SYST 131
[2022-10-28] MEDS: SUCRALFATE 1 GM TABLET PO SCH (17:58)
[2022-10-28 20:00] VITALS: BP_SYST 118
[2022-10-28] MEDS: roPINIRole HCL 0.25 MG ( REQUIP )TABLET PO SCH (21:37)
[2022-10-28] MEDS: PRAMIPEXOLE DI-HCL 1 MG TABLET PO SCH (21:38)
[2022-10-29 00:30] VITALS: BP_SYST 99
[2022-10-29] MEDS: NAFCILLIN SODIUM 2 GM in NS 100 ML IV SCH ×4 (00:51→17:38)
[2022-10-29 05:56] LABS: BASOPHILS % (AUTO) 0.1 % (0.0-2.0); EOSINOPHILS % (AUTO) 0.3 % (0.0-4.0); HEMATOCRIT 32.7 % (36-54); HEMOGLOBIN 10.4 g/dL (14.0-18.0); LYMPHOCYTES # (AUTO) 1.4 K/uL (1.0-5.5); LYMPHOCYTES % (AUTO) 11.3 % (20.5-51.5); MEAN CORPUSCULAR HEMOGLOBIN 26 pg (27-31); MEAN CORPUSCULAR HGB CONC 32 % (32-36); MEAN CORPUSCULAR VOLUME 82 fL (79.0-98.0); MONOCYTES % (AUTO) 8.2 % (1.7-9.3); NEUTROPHILS # (AUTO) 9.9 K/uL (1.8-7.7); NEUTROPHILS % (AUTO) 80.1 % (40.0-70.0); PLATELET COUNT (AUTO) 254 K/uL (130-430); RED BLOOD CELL COUNT(AUTO) 3.98 MIL/uL (4.2-6.2); RED CELL DISTRIBUTION WIDTH 20.1 % (9.0-15.0); WHITE BLOOD COUNT (AUTO) 12.3 K/uL (4.8-10.8)
[2022-10-29 06:32] LABS: INR 1.4 (0.80-1.20); PROTHROMBIN TIME 14.1 SECS (9.5-12.5)
[2022-10-29 06:34] LABS: ALANINE AMINOTRANSFERASE 57 U/L (12-78); ALBUMIN 1.5 g/dL (3.4-4.8); ASPARTATE AMINOTRANSFERASE 25 U/L (10-37); CALCIUM 8.4 mg/dL (8.4-11.0); CHLORIDE 98 mmol/L (98-107); GLUCOSE 107 mg/dL (70-99); TOTAL BILIRUBIN 1.5 mg/dL (0.0-1.0)
[2022-10-29] MEDS: SUCRALFATE 1 GM TABLET PO SCH ×2 (06:45→17:28)
[2022-10-29 06:46] LABS: UREA NITROGEN, BLOOD 17 mg/dL (8-21)
[2022-10-29 06:59] LABS: ANION GAP 4 (5-15)
[2022-10-29 08:00] VITALS: BP_SYST 98
[2022-10-29] MEDS: CIPROFLOXACIN LACT 200 MG/D5W 100 ML IV SCH ×2 (08:18→20:13)
[2022-10-29] MEDS: FUROSEMIDE 20 MG/2 ML VIAL IVP SCH ×2 (08:18→20:14)
[2022-10-29] MEDS ORDERED: MIDAZOLAM HCL 2 MG/2 ML VIAL (VERSED) IVP ONE (08:45)
[2022-10-29] MEDS ORDERED: fentaNYL CITRATE/PF 100 MCG/2 ML AMP IVP ONE (08:45)
[2022-10-29] MEDS: METOPROLOL SUCCINATE 25 MG TAB.SR.24H (TOPROL XL) PO SCH (09:00)
[2022-10-29] MEDS: DOCUSATE SODIUM 100 MG CAPSULE PO SCH ×2 (09:47→20:13)
[2022-10-29] MEDS: FAMOTIDINE 20 MG TABLET PO SCH ×2 (09:47→20:13)
[2022-10-29] MEDS: LACTULOSE 20 GM/30 ML UDC PO SCH (09:47)
[2022-10-29] MEDS: SIMETHICONE 80 MG TAB.CHEW PO SCH ×3 (09:47→20:13)
[2022-10-29] MEDS: TAMSULOSIN HCL 0.4 MG CAP PO SCH ×2 (09:47→20:13)
[2022-10-29] MEDS ORDERED: MAGNESIUM SULFATE 50 ML IV ONE (10:15)
[2022-10-29] MEDS ORDERED: POTASSIUM CHLORIDE 40 MEQ in NS 250 ML IV ONE (10:15)
[2022-10-29 11:55] VITALS: BP_SYST 117
[2022-10-29 16:33] VITALS: BP_SYST 108
[2022-10-29] MEDS ORDERED: POTASSIUM CHLORIDE 20 MEQ/PKT PACKET PO ONE (16:45)
[2022-10-29 20:00] VITALS: BP_SYST 107
[2022-10-29] MEDS: roPINIRole HCL 0.25 MG ( REQUIP )TABLET PO SCH (20:13)
[2022-10-29] MEDS: PRAMIPEXOLE DI-HCL 1 MG TABLET PO SCH (20:16)
[2022-10-30] VITALS (14 sets, daily range): BP systolic 92–124
[2022-10-30] MEDS: NAFCILLIN SODIUM 2 GM in NS 100 ML IV SCH ×5 (00:56→23:56)
[2022-10-30 04:29] LABS: BASOPHILS # (AUTO) 0.1 K/uL (0.0-0.2); BASOPHILS % (AUTO) 0.4 % (0.0-2.0); EOSINOPHILS % (AUTO) 0.1 % (0.0-4.0); HEMOGLOBIN 11.1 g/dL (14.0-18.0); LYMPHOCYTES # (AUTO) 1.3 K/uL (1.0-5.5); MEAN CORPUSCULAR HEMOGLOBIN 26 pg (27-31); MEAN CORPUSCULAR HGB CONC 32 % (32-36); MEAN CORPUSCULAR VOLUME 84 fL (79.0-98.0); MONOCYTES # (AUTO) 1.2 K/uL (0.0-1.0); MONOCYTES % (AUTO) 8.9 % (1.7-9.3); NEUTROPHILS # (AUTO) 10.4 K/uL (1.8-7.7); NEUTROPHILS % (AUTO) 80.6 % (40.0-70.0); PLATELET COUNT (AUTO) 304 K/uL (130-430); RED BLOOD CELL COUNT(AUTO) 4.19 MIL/uL (4.2-6.2); RED CELL DISTRIBUTION WIDTH 20.3 % (9.0-15.0)
[2022-10-30 04:46] LABS: ALANINE AMINOTRANSFERASE 47 U/L (12-78); ALBUMIN 1.6 g/dL (3.4-4.8); ASPARTATE AMINOTRANSFERASE 42 U/L (10-37); CALCIUM 8.6 mg/dL (8.4-11.0); CREATININE 0.79 mg/dL (0.55-1.30); GLUCOSE 126 mg/dL (70-99); TOTAL BILIRUBIN 1.5 mg/dL (0.0-1.0); UREA NITROGEN, BLOOD 15 mg/dL (8-21)
[2022-10-30 05:09] LABS: ANION GAP 6 (5-15); CHLORIDE 98 mmol/L (98-107)
[2022-10-30] MEDS ORDERED: POTASSIUM CHLORIDE 20 MEQ TAB.PRT.SR PO ONE (05:45)
[2022-10-30] MEDS ORDERED: KCL 40 mEq in 100 mL (PREMIX) 100 ML IV ONE (05:45)
[2022-10-30] MEDS: SUCRALFATE 1 GM TABLET PO SCH ×2 (06:00→17:00)
[2022-10-30 07:23] LABS: INR 1.3 (0.80-1.20); PROTHROMBIN TIME 12.8 SECS (9.5-12.5)
[2022-10-30] MEDS: CIPROFLOXACIN LACT 200 MG/D5W 100 ML IV SCH ×2 (08:08→20:18)
[2022-10-30] MEDS ORDERED: POTASSIUM CHLORIDE 40 MEQ, LIDOCAINE JECT 2% PF 100 MG 50 MG in NS 250 ML IV ONE (09:00)
[2022-10-30] MEDS ORDERED: FUROSEMIDE 20 MG TABLET PO ONE (09:15)
[2022-10-30] MEDS: DOCUSATE SODIUM 100 MG CAPSULE PO SCH ×3 (10:06→20:41)
[2022-10-30] MEDS: FAMOTIDINE 20 MG TABLET PO SCH ×2 (10:06→20:43)
[2022-10-30] MEDS: SIMETHICONE 80 MG TAB.CHEW PO SCH ×3 (10:07→20:43)
[2022-10-30] MEDS: TAMSULOSIN HCL 0.4 MG CAP PO SCH ×2 (10:07→20:41)
[2022-10-30] MEDS: METOPROLOL SUCCINATE 25 MG TAB.SR.24H (TOPROL XL) PO SCH (10:08)
[2022-10-30] MEDS: POTASSIUM CHLORIDE 20 MEQ/PKT PACKET PO SCH ×2 (10:11→20:41)
[2022-10-30] MEDS: LACTULOSE 20 GM/30 ML UDC PO SCH (10:11)
[2022-10-30] MEDS ORDERED: FUROSEMIDE 40 MG/4 ML VIAL IVP ONE (11:30)
[2022-10-30] MEDS: roPINIRole HCL 0.25 MG ( REQUIP )TABLET PO SCH (20:43)
[2022-10-30] MEDS: PRAMIPEXOLE DI-HCL 1 MG TABLET PO SCH (20:43)
[2022-10-30] MEDS ORDERED: FUROSEMIDE 20 MG TABLET PO SCH (21:00)
[2022-10-31] VITALS (10 sets, daily range): BP systolic 98–135
[2022-10-31] MEDS: D5/0.45 NS 1,000 ML IV SCH ×2 (01:09→21:58)
[2022-10-31] MEDS: NAFCILLIN SODIUM 2 GM in NS 100 ML IV SCH ×3 (05:42→18:32)
[2022-10-31] MEDS: SUCRALFATE 1 GM TABLET PO SCH ×2 (06:07→18:33)
[2022-10-31 09:36] LABS: BASOPHILS # (AUTO) 0.1 K/uL (0.0-0.2); BASOPHILS % (AUTO) 0.4 % (0.0-2.0); EOSINOPHILS % (AUTO) 0.1 % (0.0-4.0); HEMATOCRIT 32.8 % (36-54); HEMOGLOBIN 10.2 g/dL (14.0-18.0); LYMPHOCYTES # (AUTO) 1.3 K/uL (1.0-5.5); LYMPHOCYTES % (AUTO) 11.1 % (20.5-51.5); MEAN CORPUSCULAR HEMOGLOBIN 26 pg (27-31); MEAN CORPUSCULAR HGB CONC 31 % (32-36); MEAN CORPUSCULAR VOLUME 84 fL (79.0-98.0); MONOCYTES % (AUTO) 8.2 % (1.7-9.3); NEUTROPHILS # (AUTO) 9.5 K/uL (1.8-7.7); NEUTROPHILS % (AUTO) 80.2 % (40.0-70.0); PLATELET COUNT (AUTO) 260 K/uL (130-430); RED BLOOD CELL COUNT(AUTO) 3.92 MIL/uL (4.2-6.2); RED CELL DISTRIBUTION WIDTH 20.6 % (9.0-15.0); WHITE BLOOD COUNT (AUTO) 11.9 K/uL (4.8-10.8)
[2022-10-31 09:51] LABS: ANION GAP 1 (5-15); CALCIUM 8.2 mg/dL (8.4-11.0); CHLORIDE 101 mmol/L (98-107); GLUCOSE 117 mg/dL (70-99); UREA NITROGEN, BLOOD 19 mg/dL (8-21)
[2022-10-31 09:52] LABS: INR 1.3 (0.80-1.20)
[2022-10-31 09:55] LABS: ALANINE AMINOTRANSFERASE 36 U/L (12-78); ALBUMIN 1.6 g/dL (3.4-4.8); ASPARTATE AMINOTRANSFERASE 31 U/L (10-37); TOTAL BILIRUBIN 1.3 mg/dL (0.0-1.0)
[2022-10-31] MEDS: SIMETHICONE 80 MG TAB.CHEW PO SCH ×3 (10:27→21:57)
[2022-10-31] MEDS: FAMOTIDINE 20 MG TABLET PO SCH ×2 (10:28→21:56)
[2022-10-31] MEDS: TAMSULOSIN HCL 0.4 MG CAP PO SCH ×2 (10:28→21:56)
[2022-10-31] MEDS ORDERED: FUROSEMIDE 20 MG/2 ML VIAL IVP ONE (10:30)
[2022-10-31] MEDS: METOPROLOL SUCCINATE 25 MG TAB.SR.24H (TOPROL XL) PO SCH (10:30)
[2022-10-31] MEDS: DOCUSATE SODIUM 100 MG CAPSULE PO SCH ×2 (10:31→21:56)
[2022-10-31] MEDS: LACTULOSE 20 GM/30 ML UDC PO SCH (10:33)
[2022-10-31] MEDS: POTASSIUM CHLORIDE 20 MEQ/PKT PACKET PO SCH ×2 (10:40→21:57)
[2022-10-31] MEDS: POTASSIUM CHLORIDE 40 MEQ in 0.45% NS 250 ML IV SCH ×2 (13:54→18:34)
[2022-10-31 17:55] LABS: ANION GAP 2 (5-15); CHLORIDE 100 mmol/L (98-107); GLUCOSE 120 mg/dL (70-99); UREA NITROGEN, BLOOD 21 mg/dL (8-21)
[2022-10-31 18:00] LABS: CALCIUM 8.5 mg/dL (8.4-11.0)
[2022-10-31] MEDS: FUROSEMIDE 20 MG/2 ML VIAL IVP SCH (21:57)
[2022-10-31] MEDS: PRAMIPEXOLE DI-HCL 1 MG TABLET PO SCH (21:58)
[2022-10-31] MEDS: roPINIRole HCL 0.25 MG ( REQUIP )TABLET PO SCH (21:58)
[2022-11-01] MEDS: NAFCILLIN SODIUM 2 GM in NS 100 ML IV SCH ×2 (01:00→06:02)
[2022-11-01 01:24] VITALS: BP_SYST 106
[2022-11-01 05:28] LABS: HEMATOCRIT 34.1 % (36-54); HEMOGLOBIN 10.6 g/dL (14.0-18.0); MEAN CORPUSCULAR HEMOGLOBIN 27 pg (27-31); MEAN CORPUSCULAR HGB CONC 31 % (32-36); MEAN CORPUSCULAR VOLUME 86 fL (79.0-98.0); PLATELET COUNT (AUTO) 261 K/uL (130-430); RED CELL DISTRIBUTION WIDTH 21.7 % (9.0-15.0); WHITE BLOOD COUNT (AUTO) 15.7 K/uL (4.8-10.8)
[2022-11-01 05:54] LABS: ALANINE AMINOTRANSFERASE 35 U/L (12-78); ALBUMIN 1.8 g/dL (3.4-4.8); ANION GAP 4 (5-15); ASPARTATE AMINOTRANSFERASE 34 U/L (10-37); CALCIUM 8.3 mg/dL (8.4-11.0); CHLORIDE 101 mmol/L (98-107); CREATININE 0.99 mg/dL (0.55-1.30); GLUCOSE 149 mg/dL (70-99); TOTAL BILIRUBIN 1.7 mg/dL (0.0-1.0); UREA NITROGEN, BLOOD 24 mg/dL (8-21)
[2022-11-01] MEDS: SUCRALFATE 1 GM TABLET PO SCH (06:02)
[2022-11-01 06:45] LABS: BASOPHILS % (MANUAL) 0 % (0-2); EOSINOPHILS % (MANUAL) 2 % (0-7); LYMPHOCYTES % (MANUAL) 19 % (20-46); MONOCYTES % (MANUAL) 3 % (0-11)
[2022-11-01] MEDS: POTASSIUM CHLORIDE 20 MEQ/PKT PACKET PO SCH (09:15)
[2022-11-01] MEDS: LACTULOSE 20 GM/30 ML UDC PO SCH (09:15)
[2022-11-01] MEDS: FAMOTIDINE 20 MG TABLET PO SCH (09:16)
[2022-11-01] MEDS: SIMETHICONE 80 MG TAB.CHEW PO SCH (09:16)
[2022-11-01] MEDS: METOPROLOL SUCCINATE 25 MG TAB.SR.24H (TOPROL XL) PO SCH (09:16)
[2022-11-01] MEDS: DOCUSATE SODIUM 100 MG CAPSULE PO SCH (09:17)
[2022-11-01] MEDS: TAMSULOSIN HCL 0.4 MG CAP PO SCH (09:17)
[2022-11-01] MEDS: FUROSEMIDE 20 MG/2 ML VIAL IVP SCH (09:18)
[2022-11-01] MEDS ORDERED: POTASSIUM CHLORIDE 20 MEQ/PKT PACKET PO ONE (09:45)
== END 2022-11-01 11:17 | DRG 871 ==
LOC: SED 16:13 → SIC 19:13 → STU 10-27 19:06 → SIC 10-30 12:06 → STU 10-31 12:34
PROVIDERS: ADMIT Internal Medicine; ATTEND Internal Medicine
PROC: 02HV33Z Insertion of Infusion Device into Superior Vena Cava, Percutaneous Approach (ICD-10-PCS; principal; 2022-10-19)
PROC: B548ZZA Ultrasonography of Superior Vena Cava, Guidance (ICD-10-PCS; 2022-10-19)
PROC: 5A09357 Assistance with Respiratory Ventilation, Less than 24 Consecutive Hours, Continuous Positive Airway Pressure (ICD-10-PCS; 2022-10-30)
PROC: 0BH17EZ Insertion of Endotracheal Airway into Trachea, Via Natural or Artificial Opening (ICD-10-PCS; 2022-11-01)
DX: A41.01 Sepsis due to Methicillin susceptible Staphylococcus aureus (principal); E43 Unspecified severe protein-calorie malnutrition; I21.4 Non-ST elevation (NSTEMI) myocardial infarction; J69.0 Pneumonitis due to inhalation of food and vomit; J96.01 Acute respiratory failure with hypoxia; K72.00 Acute and subacute hepatic failure without coma; I48.20 Chronic atrial fibrillation, unspecified; N39.0 Urinary tract infection, site not specified; D68.9 Coagulation defect, unspecified; T40.2X1A Poisoning by other opioids, accidental (unintentional), initial encounter; T39.1X1A Poisoning by 4-Aminophenol derivatives, accidental (unintentional), initial encounter; I95.9 Hypotension, unspecified; E87.6 Hypokalemia; N40.0 Benign prostatic hyperplasia without lower urinary tract symptoms; T45.515A Adverse effect of anticoagulants, initial encounter; R74.01 Elevation of levels of liver transaminase levels; I11.0 Hypertensive heart disease with heart failure; I50.9 Heart failure, unspecified; E78.5 Hyperlipidemia, unspecified; Z20.822 Contact with and (suspected) exposure to COVID-19; E11.9 Type 2 diabetes mellitus without complications; Z79.01 Long term (current) use of anticoagulants; Y92.89 Other specified places as the place of occurrence of the external cause; Z68.23 Body mass index [BMI] 23.0-23.9, adult; I46.9 Cardiac arrest, cause unspecified
CPT/HCPCS: 36415; 36600; 70450-TC; 71045; 71250-TC; 76376; 80048; 80053; 80061; 80076; 80202; 80307; 81000; 82140; 82550; 82803-TC; 82962; 83605; 83690; 83735; 83880; 84100; 84132; 84443; 84450; 84460; 84484; 85007; 85025; 85027; 85610-TC; 85651-TC; 85730-TC; 86665; 86803; 87040; 87081; 87086; 87186-TC; 87340; 87497; 92610-GN; 92950; 93005; 93306; 94660; 94760; 96365; 96367; 96368; 96375; 97110-GP; 97163-GP; 97530-GP; 99291; G0378; G0480; G0481; G0482; J0132; J0282; J0744; J1940; J2270; J2310; J2543; J3010; J3370; J3430; J3475; J3480; J3490; J7050; J7060